=== PATIENT | male | born 1965 | race Caucasian/White ===

== ENCOUNTER 2017-01-21 15:51 | Emergency (ER) | payer OTHER ==
[~2017-01-21 15:51] MED LIST: ANEXSIA 7.5/3251 TA1 PO; FLEXERIL PO; IBUPROFEN800 MG PO; LORTAB 5/500 TA1 TA1 PO; PERCOCET 7.5-31 EACH PO
== END 2017-01-21 18:15 | disposition home or self-care (01) ==
LOC: CFTX 15:51 → CED 15:51 → CFTX 18:11
DX: Z46.6 Encounter for fitting and adjustment of urinary device (principal); F17.200 Nicotine dependence, unspecified, uncomplicated; Z79.899 Other long term (current) drug therapy
CPT/HCPCS: 99283

== ENCOUNTER → 2017-04-18 | Outpatient (CLI) | payer OTHER ==
--- NOTE | ~2017-04-18 | MR43 ---
[facility] A Service [facility] RADIOLOGY TEXT RESULTS PATIENT: DARREL ACOSTA JR LOCATION: [facility] : 67 UNIT #: [id number] AGE: [address]: SATURNINO REYNOSO SEX: M ORDER DR: [id number] [address] [address] [id number] O MR#: [id number] Acc #: [id number] NAME: DARREL ACOSTA : 1965 SEX: M STUDY DATE/TIME: 04/18/2017 16:59 UNIT: [facility] ROOM: STUDY DESCRIPTION: MR Elbow Wo Contrast Rt Attending Physician: Saturnino Reynoso Referring Physician: Saturnino Reynoso Ordering Physician: Physician Non-Staff Primary Care Physician: Saturnino Reynoso MRI CENTER REPORT This report is preliminary unless electronic signature is present. EXAM MRI right elbow. HISTORY 52-year-old male complains of right elbow pain for 2 weeks. Decreased pc tech strength. FINDINGS Multiplanar multiecho imaging was performed of the right elbow utilizing a high field magnet dedicated protocol. Early degenerative arthropathy is noted of the elbow with developing marginal osteophytes. A small focus of subchondral edema along the posterior capitellum most likely corresponds to an area of chondromalacia. Minimal joint fluid. Moderate thickening and increased signal within the common extensor tendon origin along the lateral aspect of the elbow consistent with lateral epicondylitis. Probable small intrasubstance partial tear. No high-grade tear identified. Common flexor tendon origin appears normal. Biceps, brachialis and triceps tendon insertions are normal. Elbow musculature appears normal. Collateral ligaments appear intact. Cubital tunnel and ulnar nerves appear normal. IMPRESSION 1. 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 2. Moderate lateral epicondylitis with a small intrasubstance partial tear. 1. Dictated by.Morris. Amada Hernandez M.D. THIS IS AN ELECTRONICALLY VERIFIED REPORT [facility] A Service [facility] RADIOLOGY TEXT RESULTS PATIENT: DARREL ACOSTA JR LOCATION: [facility] : 67 UNIT #: [id number] AGE: [address]: SATURNINO REYNOSO SEX: M ORDER DR: Amada Hernandez M.D. at 04/19/2017 4:45 PM Justin TD: 04/19/2017 09:41 JOB #: [id number] MRI CENTER REPORT Page 1 of 1
== END | disposition home or self-care (01) ==
LOC: SMRI 16:41
DX: M25.521 Pain in right elbow (principal); M77.11 Lateral epicondylitis, right elbow; M19.021 Primary osteoarthritis, right elbow
CPT/HCPCS: 73221